=== PATIENT | female | born 1995 | race Caucasian/White ===

== ENCOUNTER 2017-08-20 15:06 | Outpatient (CLI) | END 2017-08-20 21:42 | disposition home or self-care (01) ==

== ENCOUNTER 2017-08-27 12:28 | Inpatient (IN) | END 2017-08-29 20:35 | disposition home or self-care (01) | DRG 775 ==

== ENCOUNTER 2018-03-04 14:39 | Emergency (ER) | END 2018-03-04 16:07 | disposition home or self-care (01) ==

== ENCOUNTER 2018-04-14 13:36 | Emergency (ER) | END 2018-04-14 15:47 | disposition home or self-care (01) ==